=== PATIENT | male | born 1980 ===

== ENCOUNTER 2023-06-05 11:17 | Emergency (ER) | payer BC, SELFPAY ==
[2023-06-05 11:25] VITALS: BP 144/93
[2023-06-05 11:42] LABS: % Basophils 0.5 % (0-2); % Eosinophils 1.5 % (0-6); % Immature Granulocytes 0.4 % (0-0.5); % Lymphocytes 24.8 % (20.5-51.1); % Monocytes 9.3 % (1.7-9.3); % Neutrophils 63.5 % (42.2-75.2); Absolute Eosinophils 0.1 10^3/uL (0-0.7); Absolute Lymphocytes 1.8 10^3/uL (1.2-3.4); Absolute Monocytes 0.7 10^3/uL (0.1-0.6); Absolute Neutrophils 4.7 10^3/uL (1.4-6.5); Hematocrit 43.2 % (39.0-52.0); Hemoglobin 14.9 g/dL (13.0-18.0); Mean Corp Hgb Conc. 34.5 g/dL (33.0-37.0); Mean Corpuscular Hgb 31.6 pg (27.0-31.0); Mean Corpuscular Volume 91.5 fL (80.0-94.0); Mean Platelet Volume 11.6 fL (7.4-10.4); Nucleated Red Blood Cells % 0 % (-); Platelet Count 202 10^3/uL (130-400); Red Blood Cell Count 4.72 10^6/uL (4.70-6.10); Red Cell Dist. Width 12.1 % (11.5-14.5); White Blood Cell Count 7.4 10^3/uL (4.8-10.8)
[2023-06-05 11:58] LABS: ALT (SGPT) 59 U/L (0-50); AST (SGOT) 52 U/L (17-59); Albumin 4.4 g/dl (3.5-5.0); Alkaline Phosphatase 80 U/L (38-126); Blood Urea Nitrogen 12 mg/dl (9-20); Calcium 9.4 mg/dl (8.4-10.2); Carbon Dioxide 26 mmol/L (22-30); Chloride 99 mmol/L (98-107); Glucose 113 mg/dl (70-99); Potassium 4.6 mmol/L (3.5-5.1); Sodium 133 mmol/L (135-145); Total Bilirubin 0.6 mg/dl (0.2-1.3); Total Protein 6.9 g/dl (6.3-8.2); eGFR > 60.00
[2023-06-05 12:08] LABS: Troponin I < 0.012 ng/ml
[2023-06-05 12:45] VITALS: BMI 24.5
--- NOTE | 2023-06-05 13:04 | ED.GENMED ---
History of Present Illness
General
Chief Complaint: Chest Pain
Source: patient and family
Exam Limitations: none
Time Seen by Provider: 06/05/23 12:25
Nursing documentation reviewed up to this point in time: agreed with
Travel History
Have you had any contact with someone who has COVID-19?: No
Do you have any symptoms of coronavirus? Fever > 100 degrees, chills, cough, shortness of breath, sore throat, loss of taste or smell, muscle aches, or headache?: No
History of Present Illness
History of Present Illness:
The patient is a 43-year-old man who reports that he was working out in the gym and felt sudden onset of palpitations. Patient reports this occurred around 10:30 this morning. He reports he did not have chest pain, rather he felt as though his
heart was beating rapidly. He reports he feels much better at this time. He reports the symptoms lasted about 20 minutes and then went away. 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 He reports he wore a Holter monitor and no abnormalities were found at that time. Patient reports he feels very well now. He denies any bloody or black stools. He denies any recent illnesses or fever.
Past History
Past History
ED Past Medical History: GERD, Other (BG on CPAP) and Other (seasonal allergies)
ED Past Surgical History: Urological and Other
Social History
Tobacco: Non-smoker
Alcohol: Other
Drug: None
Personal:
Living: with family
Employment: Employed
Family History
Family History: Other
Review of Systems
Review of Systems
Allergies reviewed?: Yes
All Other Systems: ROS reviewed and negative except as documented in HPI and ROS
Constitutional: Reports no symptoms
EENT: Reports no symptoms
Respiratory: Reports no symptoms
Cardiac: Reports palpitations
ABD/GI: Reports no symptoms
: Reports no symptoms
Musculoskeletal: Reports no symptoms
Skin: Reports no symptoms
Neurological: Reports no symptoms
Endocrine: Reports no symptoms
Hematologic/Lymphatic: Reports no symptoms
Psychiatric: Reports no symptoms
Phy Exam
Physical Exam
Physical Exam:
Physical Exam
General: no apparent distress, not acutely ill. Well and comfortable appearing
Neck: supple. no meningeal signs. normal psoterior pharynx
Heart: s1/s2 regular rate and rhythm, no murmur. equal radial pulses. Heart rate 85
Lungs: no acute respiratory distress. clear bilaterally
Abdomen: normal bowel sounds. not tender. no CVAT
Neuro: alert and oriented. no focal neurological deficits
Skin: no rash
Psychiatric: well kept. interactive and cooperative
Extremities: no edema. no calf tenderness. negative homans. good distal pulses
Scores
Heart Score for Chest Pain Patients
STEMI patient?: Not applicable
Course
Orders/Labs/Results
Orders:
Orders
06/05/23 11:24
EKG [Electrocardiogram (*1)] Urgent
Reason for Study: Chest Pain
EKG- Treatment ONCE
06/05/23 11:33
Complete Blood Count/With Diff Urgent
Comprehensive Metabolic Panel Urgent
Troponin I Urgent
06/05/23 13:13
Electrocardiogram (*1) Urgent
Reason for Study: Tachycardia
Comment: repeat EKG
EKG- Treatment ONCE
Vital Signs- Treatment ONCE
Frequency: Once
Abnormal Lab Results
06/05/23
11:33
MCH 31.6 H pg
(27.0-31.0)
MPV 11.6 H fL
(7.4-10.4)
Absolute Monos (auto) 0.7 H 10^3/uL
(0.1-0.6)
Sodium 133 L mmol/L
(135-145)
Glucose 113 H mg/dl
(70-99)
ALT 59 H U/L
(0-50)
06/05/23 11:33
06/05/23 11:33
Vital Signs
Initial and Last Documented VS:
Initial Vital Signs
Temp Pulse Resp BP Pulse Ox
97.9 F 104 17 144/93 100
06/05/23 11:25 06/05/23 11:25 06/05/23 11:25 06/05/23 11:25 06/05/23 11:25
Last Documented Vital Signs
Temp Pulse Resp BP Pulse Ox
97.9 F 74 18 128/82 100
06/05/23 11:25 06/05/23 14:11 06/05/23 14:11 06/05/23 14:11 06/05/23 11:25
MDM/Problems Addressed
Differential Diagnosis Includes:
Sinus tachycardia, A-fib, dehydration
MDM/Problems Addressed:
Patient presents with acute palpitations that are now gone
*Pulse Oximetry
Patient hypoxic: no
*EKG
Interpreted by ED Provider?: Yes
Interpretation: abnormal
Comparison EKG: no comparison EKG present
Rate: tachycardiac
Rhythm: sinus
[place]: normal axis
Interval: normal interval
QRS Pattern: normal QRS
Ischemia: no ischemia
*[place] Interpretation
Rate: normal
Interpretation: normal
Rhythm: sinus
*Critical Care Note
Total Time (30-74mins, 75-104mins- exclusive of procedures): Not Applicable
Data Reviewed
Review of Other/Old Records Reveals: Testing (Cardiac echo normal from 2021)
Source: patient and spouse
Patient Management
Social determinants of health affecting care: Strong social support
Escalation/DeEscalation of care consider admission/obs:
Patient is now in normal sinus rhythm. There is no sign of cardiac arrhythmias on monitor worker. Given he has no chest pain or shortness of breath, it is doubtful he has a PE. Patient admits he had to cups of coffee prior to working out. I
encouraged that patient back on the caffeine.
ED Attending Note
-
Portions of this chart may have been created with voice recognition software.� Occasional wrong word or��sound alike� substitutions may have occurred due to the inherent limitations of voice recognition software.
Discharge Plan
Departure
Patient Disposition: Home (Routine Discharge)
Date of Disposition: 06/05/23
Time of Disposition: 14:02
Patient with high blood pressure during this ER visit?: Yes
Condition: Good
Covid-19: Not Applicable
Discharge Problem:
Sinus tachycardia
Instructions: Sinus Tachycardia (DC), BLOOD PRESSURE
Referrals:
Katy Givens CRNP [Family Provider] -
Activity Restrictions/Additional Instructions:
Limit your caffeine. Drink lots of water today.
Interventions
Interventions:
*Risk Screen - Suicide Last Done: 06/05/23 12:47
*General Assessment Last Done: 06/05/23 12:47
*Neglect/Abuse Screening Last Done: 06/05/23 12:47
ED- Fall Risk Assessment Last Done: 06/05/23 14:11
*ED COVID-19 Vaccine History Last Done: 06/05/23 14:11
*Nursing Disposition Last Done: 06/05/23 14:11
ED- Cardiac Assessment Last Done: 06/05/23 12:47
Discharge Date and Time
Discharge Date/Time: 06/05/23 14:12
[2023-06-05 13:22] VITALS: BP 127/89
[2023-06-05 14:11] VITALS: BP 128/82
== END 2023-06-05 14:12 | disposition home or self-care (01) ==
LOC: EMR 11:17
PROVIDERS: Emergency Medicine; EMERGENCY PHYSICIAN Emergency Medicine; FAMILY PHYSICIAN Nurse Practitioner Adult Health
DX: R00.0 Tachycardia, unspecified (principal); R00.2 Palpitations; K21.9 Gastro-esophageal reflux disease without esophagitis; G47.33 Obstructive sleep apnea (adult) (pediatric)
CPT/HCPCS: 99283; 80053; 84484; 85025; 93005

== ENCOUNTER → 2024-03-30 11:29 | Outpatient (REF) | payer BC, SELFPAY ==
[2024-03-30 23:33] LABS: Rubella Positive
[2024-03-31 15:30] LABS: Hepatitis B Surface Antibody Positive
[2024-04-01 09:50] LABS: Quantiferon Mitogen minus NIL 9.99 IU/mL; Quantiferon NIL 0.02 IU/mL; Quantiferon Plus TB2 minus NIL 0.01 IU/mL (<=0.34); Quantiferon TB Gold Plus Negative (Negative)
== END ==
LOC: REG 11:29
PROVIDERS: ATTENDING PHYSICIAN Nurse Practitioner; FAMILY PHYSICIAN Family Medicine
DX: Z23 Encounter for immunization (principal)
CPT/HCPCS: 36415; 86480; 86706; 86735; 86762; 86765; 86787